=== PATIENT | male | born 1950 ===

== ENCOUNTER 2019-03-10 23:26 | Inpatient (IN) | payer SELFPAY ==
[2019-03-10 23:59] LABS: Basophils # (Auto) 0.1 K/mm3 (0.0-0.1); Eosinophils # (Auto) 0.7 K/mm3 (0.0-0.4); Eosinophils % (Auto) 7.4 % (0.0-4.3); Hematocrit 28.6 % (35.5-45.6); Hemoglobin 9.3 gm/dl (11.8-15.2); Lymphocytes # (Auto) 2.6 K/mm3 (1.2-5.4); Lymphocytes % (Auto) 27.1 % (13.4-35.0); Mean Corpuscular HGB Conc 32 % (32-34); Mean Corpuscular Volume 88 fl (84-94); Monocytes # (Auto) 0.9 K/mm3 (0.0-0.8); Monocytes % (Auto) 9.1 % (0.0-7.3); Platelet Count 358 K/mm3 (140-440); Red Blood Count 3.25 M/mm3 (3.65-5.03); Red Cell Distribution Width 16.8 % (13.2-15.2)
--- NOTE | 2019-03-11 00:06 | Emergency Department Report ---
HPI - General Chief Complaint: Dyspnea/Respdistress Time Seen by Provider: 03/10/19 23:33 - HPI HPI: 68-year-old male presents to the emergency department by EMS from home with complaints of shortness of breath and chest pain. The patient has a h istory of end-stage renal disease on hemodialysis, hypertension. He has missed the last 2 dialysis sessions. Apparently he usually gets dialysis done through [facility] and does not have any assigned dialysis clinic or dressage instructor. The patient presents diaphoretic, tripoding, with respiratory distress. He does not speak any Persian but is also having difficulty giving any information seco ndary to his current acute medical condition. EMS says that he had a pulse ox in the low 80s on room air. He was given a breathing treatment and pulse ox went up to about 90%. He was also given some Solu-Medrol in route. ED Past Medical Hx - Past Medical History Previous Medical History?: Yes Hx Hypertension: Yes Additional medical history: dialysis - Social History Smoking Status: Never Smoker ED Review of Systems ROS: Stated complaint: MARIE Other details as noted in HPI Comment: Unobtainable due to pts medical conditions Respiratory: shortness of breath Cardiovascular: chest pain Physical Exam - Physical Exam Vital Signs: Vital Signs 03/10/19 23:35 Temperature 99 F Pulse Rate 124 H Respiratory 36 H Rate Blood Pressure 215/114 O2 Sat by Pulse 80 L Oximetry Physical Exam: GENERAL: Patient is diaphoretic and in respiratory distress. HENT: Normocephalic. Atraumatic. Patient has moist mucous membranes. EYES: Extraocular motions are intact. Pupils equal reactive to light bilaterally. NECK: Supple. Trachea is midline. CHEST/LUNGS: Coarse breath sounds throughout the chest. There is tachypnea and accessory muscle use and conversational dyspnea. There is respiratory distress noted. There is a right-sided dialysis chest port. HEART/CARDIOVASCULAR: Regular. There is mild tachycardia. There is no murmur. ABDOMEN: Abdomen is soft, nontender. Patient has normal bowel sounds. There is no abdominal distention. SKIN: Patient is severely diaphoretic. NEURO: The patient is awake, alert, and cooperative. The patient has no focal neurologic deficits. Normal speech. MUSCULOSKELETAL: There is no tenderness or deformity. There is no evidence of acute injury. ED Course Vital Signs 03/10/19 23:35 Temperature 99 F Pulse Rate 124 H Respiratory 36 H Rate Blood Pressure 215/114 O2 Sat by Pulse 80 L Oximetry - Consultations Consultation #1: Earlier in the evening I spoke with Dr. Hernández regarding this patient and his need for dialysis. Since the patient has improved with BiPAP and there is no significant hyperkalemia, the patient will get dialysis person in the morning. A consult has been placed. 03/11/19 02:10 ED Medical Decision Making - Lab Data Result diagrams: 03/10/19 23:39 03/10/19 23:39 - EKG Data -: EKG Interpreted by Me EKG shows normal: sinus rhythm, axis, intervals, QRS complexes (LVH), ST-T waves Rate: tachycardia (117 bpm) - EKG Data When compared to previous EKG there are: previous EKG unavailable Interpretation: other (Sinus tach. LVH) - Radiology Data Radiology results: image reviewed interpreted by me: Chest x-ray shows pulmonary vascular congestion and basilar pleural effusions. - Medical Decision Making Patient presented in respiratory distress with tripoding, tachypnea, accession muscle use, conversational dyspnea. He has oxygen desaturation without supplemental oxygen. Patient was placed on the BiPAP machine and his pulse ox went up to about 99% and he had some improvement in his respiratory status. Chest x-ray shows some pulmonary vascular congestion and basilar pleural effusions. X-ray read by radiology also showing some pneumonitis. Labs show the renal insufficiency/failure consistent with his missing 2 dialysis sessions but there is no hyperkalemia. Patient also had complaint of some chest discomfort. EKG does not show any signs of ST elevation [place]. He does have a slightly elevated first troponin but the patient is dialysis dependent. Nephrology has been contacted and consult. Patient still has some hypertensive issues and will receive some more antihypertensive medication. He will receive dialysis first thing in the morning. The patient has been accepted for adm ission by the hospitalist, Dr. Trujillo. - Differential Diagnosis Hyperkalemia, CHF, Pneumonia, [place] Critical Care Time: Yes Critical care time in (mins) excluding proc time.: 35 Critical care attestation.: If time is entered above; I have spent that time in minutes in the direct care of this critically ill patient, excluding procedure time. Critical care time was spent on this patient during his initial evaluation, multiple re- evaluations, ordering and interpretation of labs and imaging, ordering of antihypertensive medication for his hypertensive urgency, discussion with the dressage instructor and hospitalist services. Critical Care Time: 35 minutes ED Disposition Clinical Impression: Hypertensive urgency, Respiratory distress, End-stage renal disease needing dialysis Disposition: 09 OP ADMIT IP TO THIS HOSP Is pt being admited?: Yes Condition: Serious Referrals: PRIMARY CARE, [Primary Care Provider] - 3-5 Days Time of Disposition: 02:11
--- NOTE | 2019-03-11 00:11 | XRay Report ---
CHEST 1 VIEW portable upright 2338 INDICATION / CLINICAL INFORMATION: SOB. COMPARISON: None available. FINDINGS: SUPPORT DEVICES: Large bore right central line has its tip in the area of the distal superior vena ca va. HEART / MEDIASTINUM: Mild cardiomegaly LUNGS / PLEURA: Mild congestion is seen. Focal infiltrate is noted in the right base consistent with pneumonitis. Small right pleural effusion is seen. No pneumothorax. ADDITIONAL FINDINGS: No significant additional findings. IMPRESSION: Right basilar pneumonitis Signer Name: Pedro Pablo Salazar MD Signed: 03/11/2019 12:07 AM Workstation Name: [employer]
[2019-03-11] MEDS ORDERED: APRESOLINE IV ONE ×2 (00:16→02:11)
[2019-03-11] MEDS ORDERED: LASIX IV ONE (00:16)
[2019-03-11] MEDS ORDERED: PROVENTIL IH ONE (00:17)
[2019-03-11 00:22] LABS: Albumin 4.1 g/dL (3.9-5); Calcium 8.3 mg/dL (8.4-10.2)
[2019-03-11 03:09] LABS: Chol/HDL Ratio 2.83 %
[2019-03-11] MEDS ORDERED: TYLENOL PO PRN (03:17)
[2019-03-11] MEDS ORDERED: ZOFRAN IV PRN (03:18)
[2019-03-11] MEDS ORDERED: PROVENTIL IH PRN (03:19)
[2019-03-11] MEDS ORDERED: APRESOLINE IV PRN (04:51)
[2019-03-11] MEDS ORDERED: D50W (25GM) Syringe IV PRN (04:53)
[2019-03-11] MEDS ORDERED: NACL 0.9% 100 ML IV PRN (05:13)
--- NOTE | 2019-03-11 05:53 | History and Physical Report ---
CHIEF COMPLAINT: Shortness of breath. HISTORY OF PRESENTING ILLNESS: The patient is a 68-year-old male who has history of end-stage renal disease, on dialysis and missed the last 2 dialysis sessions and then developed shortness of breath with some pleuritic chest pain. The patient denied history of fever or chills and does not speak fluent Bengali and was unable to give meaningful explanation of what is going on with him. There is no history of nausea or vomiting. EMS was called and they found the patient to be in respiratory distress with low oxygen saturation running in the 80s. The patient was given some breathing treatment that brought his O2 sat to about 90 and he was also given Solu-Medrol en route and brought to the Emergency Room. There was history of diaphoresis. PAST MEDICAL HISTORY: Pertinent for end-stage renal disease that is done at [facility]. Also, the patient has past medical history of hypertension. PAST SURGICAL HISTORY: Not clearly defined. FAMILY HISTORY: Noncontributory. SOCIAL HISTORY: The patient is not known to smoke cigarettes or use illicit drugs or drink alcohol. MEDICATIONS: The patient's home medications are not known at this time. ALLERGIES: There are no known drug allergies. REVIEW OF SYSTEMS: CONSTITUTIONAL: There is no fever, no chills. The diaphoresis is present. HEENT: There is no headache or sore throat. CARDIOVASCULAR SYSTEM: Pleuritic chest pain noted. No orthopnea. RESPIRATORY SYSTEM: Shortness of breath is present. No cough. GASTROINTESTINAL SYSTEM: There is no nausea, no vomiting, no abdominal pain, diarrhea or constipation. NEUROLOGICAL SYSTEM: There is no numbness, no dizziness, no altered mental status. MUSCULOSKELETAL SYSTEM: There is no joint pain or swelling. DERMATOLOGICAL SYSTEM: There is no skin rash or itching. GENITOURINARY SYSTEM: There is no dysuria, hematuria, or flank pain. Rest of system review is normal. PHYSICAL EXAMINATION: GENERAL: At the time of exam, the patient was found to be alert, oriented x 3, on BiPAP with BiPAP mask and in mild to moderate distress due to respiratory distress. VITAL SIGNS: At the initial time of presentation showed temperature of 99 degrees Fahrenheit, pulse of 124, respirations 36, blood pressure of 215/114, O2 sat of 80% on room air. HEENT: Showed pupils to be equal, round, reactive to light and accommodating. Extraocular muscles are intact. The patient is wearing a BiPAP mask. NECK: Supple with no JVD or carotid bruit. CARDIOVASCULAR SYSTEM: Showed normal first and second heart sounds with rapid rate with no gallops or murmur. RESPIRATORY SYSTEM: Showed reduced air entry on both sides of the lungs with the patient wearing the BiPAP mask. GASTROINTESTINAL SYSTEM: Showed abdomen to be full, soft, nontender with no organomegaly or rigidity. NEUROLOGIC: Shows no focal deficit. MUSCULOSKELETAL SYSTEM: Showed no joint swelling or tenderness. DERMATOLOGICAL SYSTEM: Showed no skin rash. GENITOURINARY SYSTEM: Showing no costovertebral angle tenderness. PERTINENT LABORATORY AND IMAGING STUDIES: The patient had CBC done with normal white count, low hemoglobin of 9.3 and low hematocrit of 28.6 with CBC differential showing elevated monocyte count of 9.1 and elevated eosinophil count of 7.4%. The patient's coagulation studies were unremarkable. ABG showed high pH of 7.46 with elevated pO2 of 171 on FiO2 of 60. The patient's chemistry showed high BUN of 88 with high creatinine of 15.9, consistent with end-stage renal disease, on dialysis. The patient's troponin level was high with a value of 0.051. The patient's brain natriuretic peptide level is high with a value of 35,000. Lipid level was unremarkable. The patient had chest x-ray done that shows right basilar pneumonitis. DIAGNOSES: 1. End-stage renal disease, needing dialysis. 2. Hypertensive crisis. 3. Right basilar pneumonitis. PLAN OF CARE: 1. The patient will be admitted to [facility] and will be on telemetry. 2. The patient will continue BiPAP treatment started in the Emergency Room until the patient's oxygenation normalizes. 3. The patient will continue Nephrology consult with Dr. Hernández for management of end-stage renal disease and also hypertension. 4. The patient will be on albuterol nebulizer 2.5 mg every 6 hours as needed for shortness of breath. 5. The patient will be on IV ceftriaxone 1 g daily and Zithromax 500 mg IV daily for treatment of pneumonitis. 6. The patient will be on IV hydralazine 20 mg every 4 hours as needed for blood pressure of 160/90 or more. 7. The patient will be on Tylenol 650 mg by mouth every 4 hours for fever and headache and IV Zofran 4 mg every 8 hours for nausea and vomiting. 8. The patient's home medications will be started when they are known. ADDENDUM: The patient will be on Accu-Chek before meals and at bedtime, followed by low-dose sliding scale using regular insulin coverage, even though the patient was not documented as having a past history of diabetes mellitus. JOB# [id number] OCN/NTS
[2019-03-11] MEDS: HEPARIN SUB-Q SCH ×3 (07:01→21:04)
[2019-03-11 07:10] LABS: Creatine Kinase MB 10.8 ng/mL (0.0-4.0)
[2019-03-11] MEDS: HumuLIN R SUB-Q SCH ×4 (07:40→22:36)
[2019-03-11] MEDS ORDERED: HumuLIN R ONE (07:41)
--- NOTE | 2019-03-11 09:36 | Consultation ---
History of Present Illness - History of Present Illness Source of information: History of presenting illness Patient is 68-year-old male who came into the emergency room with complaints of chest pain and shortness of breath, after he missed 2 dialysis treatment. Patient is currently being followed by [place] [facility]. He was also noted to be markedly dyspneic and short of breath I saw the patient along with Mir, who is Guamanian speaking nurse on dialysis Also supervised. The patient on hemodialysis Patient denies having any fever or chills Pulse ox was 80% on room air The events of this hospitalization were reviewed Past medical history significant for End-stage renal disease Hypertension Secondary hyperparathyroidism Anemia and end-stage renal disease Current allergies: Reviewed Home medication. Present medication: Reviewed Social history/family history: Reviewed Review of system: Shortness of breath, chest pain. Patient missed 2 dialysis treatments Currently being dialyzed at [place] Very poorly educated about dialysis and diet All other review of systems negative Physical examination Vitals: Reviewed HEENT: Oral mucosa mildly dry. No pharyngeal erythema, no icterus Neck: Supple, no JVD, thyromegaly, nodule or mass Chest: Clear to auscultation anteriorly. Few basilar crackles, diminished breath sounds at lung base Heart: Regular rate and rhythm, S1, S2 heard, no S3, S4 Abdomen: Soft, nontender, bowel sounds present. No suprapubic mass. No CVA tenderness. No renal bruit Extremities: No petechial rash, dry skin, 1+ edema, no peripheral cyanosis Neurological: Alert, awake, follows commands. No asterixis Dermatology; no petechial skin rash, dry skin, poor skin hygiene Back: Nontender thoracolumbar spine Psychiatric: No agitation, aggression noted My assessment and plan are as follows End-stage renal disease: Patient will continue with hemodialysis treatment, 3 times a week on Monday, Monday and Monday, schedule. Monitor dialysis related labs. Dialysis access: Working well. No immediate issues Seen and supervised on hemodialysis, with Guamanian speaking nurse Anemia and end-stage renal disease: To monitor and follow. Erythropoietin as required Secondary hyperparathyroidism and bone mineral disorder. Check phosphorus and PTH level periodically Hypertension and volume: Continue to monitor. Goal systolic blood pressure less than 150 for now, ultrafiltration only as tolerated with hemodialysis. Advised to maintain fluid restriction 1200 cc per day Patient is to be on high protein diet due to dialysis status, will benefit from nutritional evaluation and follow-up Multiple other comorbidities; being followed by the primary team Renal care plan was discussed with patient. Labs were explained to the patient and simple Yemeni. Patient does appear to have good understanding of several renal-related issues that were discussed today. Renal prognosis remains guarded at this time We'll continue to follow and make recommendations from renal standpoint Patient was advised to make an appointment for follow-up in the office upon discharge. Medications and Allergies Allergies Allergy/AdvReac Type Severity Reaction Status Date / Time No Known Allergies Allergy Unverified 03/10/19 23:39 Home Medications Medication Instructions Recorded Confirmed Last Taken Type Unobtainable 03/11/19 03/11/19 Unknown History Active Meds: Active Medications Acetaminophen (Tylenol) 650 mg PO Q4H PRN PRN Reason: Fever >101 Albuterol (Proventil) 2.5 mg IH Q6HRT PRN PRN Reason: Shortness Of Breath Dextrose (D50w (25gm) Syringe) 50 ml IV PRN PRN PRN Reason: Hypoglycemia Heparin Sodium (Porcine) (Heparin) 5,000 unit SUB-Q Q12HR [facility] Last Admin: 03/11/19 07:01 Dose: Not Given Documented by: Hydralazine HCl (Apresoline) 20 mg IV Q4H PRN PRN Reason: Blood Pressure Ceftriaxone Sodium (Rocephin/Ns 1 Gm/50 Ml) 1 gm in 50 mls @ 100 mls/hr IV Q24HR [facility]; Protocol Azithromycin 500 mg/ Sodium (Chloride) 250 mls @ 250 mls/hr IV Q24HR [facility]; Protocol Sodium Chloride (Nacl 0.9%) 100 mls @ 999 mls/hr IV FITO PRN PRN Reason: Hypotension Insulin Human Regular (Humulin R) 0 units SUB-Q AC [facility]; Protocol Last Admin: 03/11/19 07:40 Dose: 1 units Documented by: Insulin Human Regular (Humulin R) 0 units SUB-Q QHS [facility]; Protocol Ondansetron HCl (Zofran) 4 mg IV Q8H PRN PRN Reason: Nausea And Vomiting Exam - Vital Signs Vital signs: Vital Signs Temp Pulse Resp BP Pulse Ox 99 F 124 H 36 H 215/114 80 L 03/10/19 23:35 03/10/19 23:35 03/10/19 23:35 03/10/19 23:35 03/10/19 23:35 Results - Lab Results 03/12/19 04:51 03/12/19 04:51 Most recent lab results Calcium 8.3 mg/dL (8.4-10.2) L 03/10/19 23:39
[2019-03-11] MEDS: ZITHROMAX 500 MG in NACL 0.9% 250ML 250 ML IV SCH (13:10)
[2019-03-11] MEDS: ROCEPHIN/NS 1 GM/50 ML 1 GM/50 ML BAG IV SCH (13:11)
[2019-03-11 13:36] LABS: Hepatitis B Surface Antigen Non-Reactive (Negative); Hepatitis C Virus Antibody Reactive (NonReactive)
--- NOTE | 2019-03-11 14:31 | Consultation ---
<KATIE RODRÍGUEZ - Last Filed: 03/11/19 14:26> History of Present Illness Consult date: 03/11/19 Consult reason: congestive heart failure History of present illness: This is a 68-year old male whom is Burundian speaking and is usually followed at [place]. Patient has a history of chronic hypertension, end stage renal disease and is on dialysis. He was brought to this hospital with shortness of breath, admitted for further evaluation. Chest x-ray reports cardiomegaly with mild interstitial edema and right basilar pneumonitis. There were no reports of chest pain or palpitations and there is no lower extremity edema. Patient denies prior cardiac history. It's reported he had a normal echocardiogram and thallium stress test at [facility] 6 months ago. Records are unavailable for cardiac review. An EKG is sinus tachycardia with LVH. Medications and Allergies Allergies Allergy/AdvReac Type Severity Reaction Status Date / Time No Known Allergies Allergy Unverified 03/10/19 23:39 Home Medications Medication Instructions Recorded Confirmed Last Taken Type Unobtainable 03/11/19 03/11/19 Unknown History Active Meds: Active Medications Acetaminophen (Tylenol) 650 mg PO Q4H PRN PRN Reason: Fever >101 Albuterol (Proventil) 2.5 mg IH Q6HRT PRN PRN Reason: Shortness Of Breath Dextrose (D50w (25gm) Syringe) 50 ml IV PRN PRN PRN Reason: Hypoglycemia Heparin Sodium (Porcine) (Heparin) 5,000 unit SUB-Q Q12HR [facility] Last Admin: 03/11/19 11:00 Dose: 5,000 unit Documented by: Hydralazine HCl (Apresoline) 20 mg IV Q4H PRN PRN Reason: Blood Pressure Ceftriaxone Sodium (Rocephin/Ns 1 Gm/50 Ml) 1 gm in 50 mls @ 100 mls/hr IV Q24HR [facility]; Protocol Last Admin: 03/11/19 13:11 Dose: 100 mls/hr Documented by: Azithromycin 500 mg/ Sodium (Chloride) 250 mls @ 250 mls/hr IV Q24HR [facility]; Protocol Last Admin: 03/11/19 13:10 Dose: 250 mls/hr Documented by: Sodium Chloride (Nacl 0.9%) 100 mls @ 999 mls/hr IV FITO PRN PRN Reason: Hypotension Insulin Human Regular (Humulin R) 0 units SUB-Q AC [facility]; Protocol Last Admin: 03/11/19 13:14 Dose: 2 units Documented by: Insulin Human Regular (Humulin R) 0 units SUB-Q QHS [facility]; Protocol Ondansetron HCl (Zofran) 4 mg IV Q8H PRN PRN Reason: Nausea And Vomiting Physical Examination Vital Signs Temp Pulse Resp BP Pulse Ox 99 F 124 H 36 H 215/114 80 L 03/10/19 23:35 03/10/19 23:35 03/10/19 23:35 03/10/19 23:35 03/10/19 23:35 General appearance: no acute distress HEENT: Positive: PERRL Cardiac: Positive: Tachycardia Lungs: Positive: Decreased Breath Sounds Neuro: Positive: Grossly Intact Extremities: Absent: edema Results 03/10/19 23:39 03/10/19 23:39 Cardiac Enzymes 03/10/19 03/11/19 Range/Units 23:39 05:50 AST 20 (5-40) units/L CK-MB (CK-2) 10.8 H (0.0-4.0) ng/mL Coagulation 03/10/19 Range/Units 23:39 APTT 28.0 (24.2-36.6) Sec. Lipids 03/10/19 Range/Units 23:39 Triglycerides 96 (2-149) mg/dL Cholesterol 176 (50-199) mg/dL HDL Cholesterol 62 H (40-59) mg/dL Cholesterol/HDL Ratio 2.83 % CBC 03/10/19 Range/Units 23:39 WBC 9.7 (4.5-11.0) K/mm3 RBC 3.25 L (3.65-5.03) M/mm3 Hgb 9.3 L (11.8-15.2) gm/dl Hct 28.6 L (35.5-45.6) % Plt Count 358 (140-440) K/mm3 Lymph # 2.6 (1.2-5.4) K/mm3 Esmeralda # 0.9 H (0.0-0.8) K/mm3 Eos # 0.7 H (0.0-0.4) K/mm3 Baso # 0.1 (0.0-0.1) K/mm3 Comprehensive Metabolic Panel 03/10/19 Range/Units 23:39 Sodium 138 (137-145) mmol/L Potassium 4.3 (3.6-5.0) mmol/L Chloride 93.8 L (98-107) mmol/L Carbon Dioxide 16 L (22-30) mmol/L BUN 88 H (9-20) mg/dL Creatinine 15.9 H (0.8-1.5) mg/dL Glucose 258 H (75-100) mg/dL Calcium 8.3 L (8.4-10.2) mg/dL AST 20 (5-40) units/L ALT 15 (7-56) units/L Alkaline Phosphatase 75 (35-129) units/L Total Protein 7.6 (6.3-8.2) g/dL Albumin 4.1 (3.9-5) g/dL Assessment and Plan Volume overload ESRD on HD Hypertension <RISHABH GAMEZ - Last Filed: 03/12/19 10:03> Medications and Allergies Active Meds: Active Medications Acetaminophen (Tylenol) 650 mg PO Q4H PRN PRN Reason: Fever >101 Albuterol (Proventil) 2.5 mg IH Q6HRT PRN PRN Reason: Shortness Of Breath Carvedilol (Coreg) 3.125 mg PO BID [facility] Last Admin: 03/12/19 10:01 Dose: 3.125 mg Documented by: Dextrose (D50w (25gm) Syringe) 50 ml IV PRN PRN PRN Reason: Hypoglycemia Hydralazine HCl (Apresoline) 20 mg IV Q4H PRN PRN Reason: Blood Pressure Ceftriaxone Sodium (Rocephin/Ns 1 Gm/50 Ml) 1 gm in 50 mls @ 100 mls/hr IV Q24HR [facility]; Protocol Last Admin: 03/12/19 09:48 Dose: 100 mls/hr Documented by: Azithromycin 500 mg/ Sodium (Chloride) 250 mls @ 250 mls/hr IV Q24HR [facility]; Protocol Last Admin: 03/12/19 09:48 Dose: 250 mls/hr Documented by: Sodium Chloride (Nacl 0.9%) 100 mls @ 999 mls/hr IV FITO PRN PRN Reason: Hypotension Insulin Human Regular (Humulin R) 0 units SUB-Q AC [facility]; Protocol Last Admin: 03/12/19 07:30 Dose: Not Given Documented by: Insulin Human Regular (Humulin R) 0 units SUB-Q QHS [facility]; Protocol Last Admin: 03/11/19 22:36 Dose: Not Given Documented by: Losartan Potassium (Cozaar) 50 mg PO QDAY [facility] Last Admin: 03/12/19 10:01 Dose: 50 mg Documented by: Ondansetron HCl (Zofran) 4 mg IV Q8H PRN PRN Reason: Nausea And Vomiting Physical Examination Vital Signs Temp Pulse Resp BP Pulse Ox 99 F 124 H 36 H 215/114 80 L 03/10/19 23:35 03/10/19 23:35 03/10/19 23:35 03/10/19 23:35 03/10/19 23:35 Results 03/12/19 04:51 03/12/19 04:51 Cardiac Enzymes 03/11/19 Range/Units 13:47 CK-MB (CK-2) 8.2 H (0.0-4.0) ng/mL CBC 03/12/19 Range/Units 04:51 WBC 9.7 (4.5-11.0) K/mm3 RBC 2.63 L (3.65-5.03) M/mm3 Hgb 7.5 L (11.8-15.2) gm/dl Hct 22.5 L D (35.5-45.6) % Plt Count 277 (140-440) K/mm3 Comprehensive Metabolic Panel 03/12/19 Range/Units 04:51 Sodium 138 (137-145) mmol/L Potassium 5.0 (3.6-5.0) mmol/L Chloride 96.9 L (98-107) mmol/L Carbon Dioxide 23 D (22-30) mmol/L BUN 61 H (9-20) mg/dL Creatinine 10.6 H (0.8-1.5) mg/dL Glucose 102 H (75-100) mg/dL Calcium 8.2 L (8.4-10.2) mg/dL Assessment and Plan Patient has end-stage renal disease, but appears to be on his suboptimal dialysis regimen of twice a week. He presents with uncontrolled hypertension and fluid overload. Echocardiogram is pending for left ventricular function assessment. Recommend optimalization of dialysis regimen for fluid and electrolyte management. Optimal blood pressure control. Further cardiac evaluation and management will depend on clinical course.
[2019-03-11 15:05] LABS: Creatine Kinase MB 8.2 ng/mL (0.0-4.0)
--- NOTE | 2019-03-11 15:11 | Event Note ---
Date: 03/11/19 Patient seen and examined, he missed his dose of medication for BP and by the time he got a refill he was already in distress, he is otherwise complaint with dialysis and normally follows at [place]. Continue current management, if no further management by cardiology will downgrade to FARAZ unit.
--- NOTE | 2019-03-11 17:36 | Consultation ---
History of Present Illness Consult date: 03/11/19 Reason for consult: dyspnea History of present illness: PULMONARY AND CRITICAL CARE CONSULTATION 68-year-old male presents to the emergency department by EMS from home with complaints of shortness of breath and chest pain. The patient has a history of end-stage renal disease on hemodialysis, hypertension. He has missed the last 2 dialysis sessions. Apparently he usually gets dialysis done through [facility] and does not have any assigned dialysis clinic or trim die maker. The patient presents diaphoretic, tripoding, with respiratory distress. He does not speak any [place] but is also having difficulty giving any information secondary to his current acute medical condition. EMS says that he had a pulse ox in the low 80s on room air. He was given a breathing treatment and pulse ox went up to about 90%. He was also given some Solu-Medrol in route. Patient alert and awake. Patient states he began having shortness of breath while lying down worsening on Monday night. He denies cough, hemoptysis. He denies history of smoking, endorses EtOH in the past. 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 Patient says he is not and has no children. Patient resting on 2L O2 via NC. O2 saturation 98% on 2L NC. Patient in mild pulmonary distress. Patient afebrile, no leukocytosis. Past History Past Medical History: diabetes, dialysis, hypertension Social history: single Medications and Allergies Allergies Allergy/AdvReac Type Severity Reaction Status Date / Time No Known Allergies Allergy Unverified 03/10/19 23:39 Home Medications Medication Instructions Recorded Confirmed Last Taken Type Unobtainable 03/11/19 03/11/19 Unknown History Active Meds: Active Medications Acetaminophen (Tylenol) 650 mg PO Q4H PRN PRN Reason: Fever >101 Albuterol (Proventil) 2.5 mg IH Q6HRT PRN PRN Reason: Shortness Of Breath Dextrose (D50w (25gm) Syringe) 50 ml IV PRN PRN PRN Reason: Hypoglycemia Heparin Sodium (Porcine) (Heparin) 5,000 unit SUB-Q Q12HR LULI Last Admin: 03/11/19 11:00 Dose: 5,000 unit Documented by: Hydralazine HCl (Apresoline) 20 mg IV Q4H PRN PRN Reason: Blood Pressure Ceftriaxone Sodium (Rocephin/Ns 1 Gm/50 Ml) 1 gm in 50 mls @ 100 mls/hr IV Q24HR LULI; Protocol Last Admin: 03/11/19 13:11 Dose: 100 mls/hr Documented by: Azithromycin 500 mg/ Sodium (Chloride) 250 mls @ 250 mls/hr IV Q24HR LULI; Protocol Last Admin: 03/11/19 13:10 Dose: 250 mls/hr Documented by: Sodium Chloride (Nacl 0.9%) 100 mls @ 999 mls/hr IV FITO PRN PRN Reason: Hypotension Insulin Human Regular (Humulin R) 0 units SUB-Q AC LULI; Protocol Last Admin: 03/11/19 16:51 Dose: 2 units Documented by: Insulin Human Regular (Humulin R) 0 units SUB-Q QHS LULI; Protocol Ondansetron HCl (Zofran) 4 mg IV Q8H PRN PRN Reason: Nausea And Vomiting Review of Systems All systems: negative (shortness of breath) Physical Examination Vital signs: Vital Signs Temp Pulse Resp BP Pulse Ox 99 F 124 H 36 H 215/114 80 L 03/10/19 23:35 03/10/19 23:35 03/10/19 23:35 03/10/19 23:35 03/10/19 23:35 General appearance: no acute distress, alert Eyes: non-icteric ENT: oropharynx moist Neck: supple, no JVD Ascultation: Bilateral: rales Cardiovascular: regular rate and rhythm Gastrointestinal: normoactive bowel sounds, soft, non-tender Integumentary: normal Extremities: no cyanosis, no edema Musculoskeletal: no deformities Gait: other (Patient resting in bed at this time.) normal mental status, non-focal exam, pupils equal and round, CN II-XII normal mood appropriate Results - Laboratory Findings CBC and BMP: 03/12/19 04:51 03/12/19 04:51 ABG POC ABG pH 7.462 (7.35-7.45) H 03/11/19 00:26 POC ABG pO2 171 (80-105) H 03/11/19 00:26 POC ABG HCO3 13.8 (22-26 mml/L) 03/11/19 00:26 POC ABG Total CO2 14 (23-27mmol/L) 03/11/19 00:26 POC ABG O2 Sat 100 03/11/19 00:26 Abnormal lab findings: Abnormal Labs 03/10/19 03/10/19 03/11/19 23:39 23:39 00:26 RBC 3.25 L Hgb 9.3 L Hct 28.6 L RDW 16.8 H [place] % (Auto) 9.1 H Eos % (Auto) 7.4 H [place] # 0.9 H Eos # 0.7 H POC ABG pH 7.462 H POC ABG pO2 171 H Chloride 93.8 L Carbon Dioxide 16 L BUN 88 H Creatinine 15.9 H Glucose 258 H POC Glucose Calcium 8.3 L Total Creatine Kinase CK-MB (CK-2) Troponin T 0.051 H NT-Pro-B Natriuret Pep 05213 H HDL Cholesterol 62 H Hepatitis C Antibody 03/11/19 03/11/19 03/11/19 05:50 07:43 09:59 RBC Hgb Hct RDW [place] % (Auto) Eos % (Auto) [place] # Eos # POC ABG pH POC ABG pO2 Chloride Carbon Dioxide BUN Creatinine Glucose POC Glucose 188 H Calcium Total Creatine Kinase 370 H CK-MB (CK-2) 10.8 H Troponin T 0.053 H NT-Pro-B Natriuret Pep HDL Cholesterol Hepatitis C Antibody Reactive A 03/11/19 03/11/19 03/11/19 12:04 13:47 16:49 RBC Hgb Hct RDW [place] % (Auto) Eos % (Auto) [place] # Eos # POC ABG pH POC ABG pO2 Chloride Carbon Dioxide BUN Creatinine Glucose POC Glucose 227 H 216 H Calcium Total Creatine Kinase 275 H CK-MB (CK-2) 8.2 H Troponin T 0.047 H NT-Pro-B Natriuret Pep HDL Cholesterol Hepatitis C Antibody - Diagnostic Findings Chest x-ray: report reviewed, image reviewed Additional studies: CHEST 1 VIEW portable upright 2338 INDICATION / CLINICAL INFORMATION: SOB. COMPARISON: None available. FINDINGS: SUPPORT DEVICES: Large bore right central line has its tip in the area of the distal superior vena cava. HEART / MEDIASTINUM: Mild cardiomegaly LUNGS / PLEURA: Mild congestion is seen. Focal infiltrate is noted in the right base consistent with pneumonitis. Small right pleural effusion is seen. No pneumothorax. ADDITIONAL FINDINGS: No significant additional findings. IMPRESSION: Right basilar pneumonitis Assessment and Plan 68-year-old male presents to the emergency department by EMS from home with complaints of shortness of breath and chest pain. The patient has a history of end-stage renal disease on hemodialysis, hypertension. He has missed the last 2 dialysis sessions. Apparently he usually gets dialysis done through [facility] and does not have any assigned dialysis clinic or trim die maker. The patient presents diaphoretic, tripoding, with respiratory distress. He does not speak any [place] but is also having difficulty giving any information secondary to his current acute medical condition. EMS says that he had a pulse ox in the low 80s on room air. He was given a breathing treatment and pulse ox went up to about 90%. He was also given some Solu-Medrol in route. Patient alert and awake. Patient states he began having shortness of breath while lying down worsening on Monday night. He denies cough, hemoptysis. He denies history of smoking, endorses EtOH in the past. 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 Patient says he is not and has no children. Patient resting on 2L O2 via NC. O2 saturation 98% on 2L NC. Patient in mild pulmonary distress. Patie nt afebrile, no leukocytosis. - Patient Problems (1) Respiratory distress Current Visit: Yes Status: Acute Plan to address problem: Albuterol/Atrovent q 6 hrs for shortness of breath. On Ceftriaxone and Azithromycin. O2 as needed to maintain O2 sat >92%. Dialysis as per nephrology. (2) Pneumonia involving right lung Current Visit: Yes Status: Acute Plan to address problem: Albuterol/Atrovent q 6 hrs for shortness of breath. On Ceftriaxone and Azithromycin. O2 as needed to maintain O2 sat >92%. (3) End-stage renal disease needing dialysis Current Visit: Yes Status: Acute Plan to address problem: Management as per nephrology. (4) Hypertensive urgency Current Visit: Yes Status: Acute Plan to address problem: BP remains elevated. Management as per primary care.
[2019-03-12 05:03] LABS: Hematocrit 22.5 % (35.5-45.6); Hemoglobin 7.5 gm/dl (11.8-15.2); Mean Corpuscular HGB Conc 33 % (32-34); Mean Corpuscular Volume 86 fl (84-94); Platelet Count 277 K/mm3 (140-440); Red Blood Count 2.63 M/mm3 (3.65-5.03); Red Cell Distribution Width 16.9 % (13.2-15.2)
[2019-03-12 05:21] LABS: Calcium 8.2 mg/dL (8.4-10.2)
[2019-03-12] MEDS: HumuLIN R SUB-Q SCH ×4 (07:30→22:04)
--- NOTE | 2019-03-12 08:44 | Progress Note ---
Subjective Interval history: Patient was seen today for follow-up on multiple renal related issues Events of this hospitalization were noted Has had hemodialysis yesterday Blood pressure is somewhat better Interdisciplinary notes were also reviewed Vitals intake output medications were reviewed Past medical history: Reviewed Family, social history: Reviewed Allergies: Reviewed Physical examination General: No acute distress Vitals: Reviewed HEENT: Oral mucosa moist no icterus Neck: Supple no thyromegaly nodular mass or JVD Chest: Clear to auscultation anteriorly Heart: Regular rate and rhythm S1-S2 heard no S3-S4 Abdomen: Soft nontender no suprapubic masses no organomegaly Extremity: Dry skin less than 1+ edema Psych: No evidence of any agitation and aggression noted Derm: No petechial rash Assessment and plan: End-stage renal disease: Patient will continue with hemodialysis treatment on MWF scheduled as tolerated, monitor dialysis related labs Accelerated hypertension requires better control and follow-up, we'll start the patient on losartan 50 mg once a day carvedilol 3.125 mg twice a day Anemia and end-stage renal disease: To monitor and follow, erythropoietin as required goal hemoglobin dialysis patients usually occurring 10 and 12, we will follow Secondary hyperparathyroidism: Monitor phosphorus and PTH periodically and adjust binders as needed Diet and nutrition: Fluid restriction 1200 mL per day, high-protein diet may benefit from nutrition consultation , patient is protein intake should be 1.5 g per KG body weight Hypertension and volume continue to monitor, educated about fluid restriction sodium restriction Patient does exhibit good understanding of the renal related issues All renal related issues were discussed with the patient, patient does exhibit good understanding, lab results were also discussed with patient in simple French Prognosis: Guarded, due to dialysis status We'll continue to follow and make recommendation from renal standpoint Objective - Vital Signs Vital signs: Vital Signs - 12hr 03/11/19 03/11/19 03/12/19 20:47 20:48 01:42 Temperature 98.7 F Pulse Rate 101 H 91 H Pulse Rate [ 84 From Monitor] Respiratory 18 14 Rate Blood Pressure 154/84 O2 Sat by Pulse 98 99 Oximetry 03/12/19 07:17 Temperature 98.6 F Pulse Rate 91 H Pulse Rate [ From Monitor] Respiratory 20 Rate Blood Pressure 162/97 O2 Sat by Pulse 98 Oximetry - Lab 03/12/19 04:51 03/12/19 04:51 Most recent lab results Calcium 8.2 mg/dL (8.4-10.2) L 03/12/19 04:51 Medications & Allergies - Medications Allergies/Adverse Reactions: Allergies No Known Allergies Allergy (Unverified 03/10/19 23:39) Home Medications: Home Medications Medication Instructions Recorded Confirmed Last Taken Type Unobtainable 03/11/19 03/11/19 Unknown History Active Medications: Generic Name Dose Route Start Last Admin Trade Name Freq PRN Reason Stop Dose Admin Acetaminophen 650 mg 03/11/19 03:17 Tylenol PO Q4H PRN Fever >101 Albuterol 2.5 mg 03/11/19 03:19 Proventil IH Q6HRT PRN Shortness Of Breath Dextrose 50 ml 03/11/19 04:53 D50w (25gm) Syringe IV PRN PRN Hypoglycemia Hydralazine HCl 20 mg 03/11/19 04:51 Apresoline IV Q4H PRN Blood Pressure Ceftriaxone Sodium 1 gm in 50 mls @ 100 mls/hr 03/11/19 10:00 03/11/19 13:11 Rocephin/Ns 1 Gm/50 Ml IV 100 mls/hr Q24HR LULI Administration Protocol Azithromycin 500 mg/ Sodium 250 mls @ 250 mls/hr 03/11/19 10:00 03/11/19 13:10 Chloride IV 250 mls/hr Q24HR LULI Administration Protocol Sodium Chloride 100 mls @ 999 mls/hr 03/11/19 05:13 Nacl 0.9% IV FITO PRN Hypotension Insulin Human Regular 0 units 03/11/19 07:30 03/11/19 16:51 Humulin R SUB-Q 2 units AC LULI Administration Protocol Insulin Human Regular 0 units 03/11/19 22:00 03/11/19 22:36 Humulin R SUB-Q Not Given QHS LULI Protocol Ondansetron HCl 4 mg 03/11/19 03:18 Zofran IV Q8H PRN Nausea And Vomiting
[2019-03-12] MEDS: ZITHROMAX 500 MG in NACL 0.9% 250ML 250 ML IV SCH (09:48)
[2019-03-12] MEDS: ROCEPHIN/NS 1 GM/50 ML 1 GM/50 ML BAG IV SCH (09:48)
[2019-03-12] MEDS ORDERED: COZAAR PO SCH (10:00)
[2019-03-12] MEDS: COREG PO SCH ×2 (10:01→22:06)
--- NOTE | 2019-03-12 10:14 | Progress Note ---
Assessment and Plan Volume overload ESRD on HD Hypertension Recommend Dialysis regimen for fluid and electrolyte management. Optimal blood pressure control. Obtain prior records from [place] for cardiac review. Subjective Date of service: 03/12/19 Interval history: Patient reports he is feeling better. He denies chest pain and shortness of breath. Objective Vital Signs Temp Pulse Pulse Resp BP Pulse Ox 03/12/19 07:17 98.6 F 91 H 20 162/97 98 03/12/19 01:42 98.7 F 91 H 14 154/84 99 03/11/19 20:48 84 18 98 03/11/19 20:47 101 H 03/11/19 20:33 100 03/11/19 19:31 98.3 F 101 H 20 157/93 95 03/11/19 17:21 103 H 25 H 154/91 99 03/11/19 17:11 106 H 24 154/91 97 03/11/19 17:00 85 18 154/91 98 03/11/19 16:51 88 19 154/87 99 03/11/19 16:40 83 19 154/87 100 03/11/19 16:31 84 16 154/87 99 03/11/19 16:21 80 15 154/87 99 03/11/19 16:20 99 03/11/19 16:15 82 14 154/87 99 03/11/19 16:00 82 82 17 154/87 98 03/11/19 15:45 93 H 17 148/92 99 03/11/19 15:31 85 18 148/92 98 03/11/19 15:15 85 15 148/92 98 03/11/19 15:00 94 H 19 148/92 03/11/19 14:45 93 H 16 151/90 99 03/11/19 14:31 93 H 16 151/90 98 03/11/19 14:15 89 22 151/90 100 03/11/19 14:00 99 H 20 151/90 98 03/11/19 13:45 98 H 21 152/90 03/11/19 13:30 101 H 26 H 157/92 99 03/11/19 13:15 90 22 161/91 98 03/11/19 13:00 107 H 19 172/96 98 03/11/19 12:45 115 H 23 156/98 90 03/11/19 12:30 102 H 19 156/98 03/11/19 12:15 103 H 22 161/97 98 03/11/19 12:00 94 H 20 153/100 99 03/11/19 11:45 96 H 20 154/99 03/11/19 11:30 97.5 F L 97 H 19 157/92 98 03/11/19 11:15 102 H 23 164/95 99 03/11/19 11:00 102 H 20 167/103 99 03/11/19 10:45 101 H 22 169/102 99 03/11/19 10:30 103 H 23 174/101 98 03/11/19 10:15 106 H 18 172/104 - Physical Examination General: No Apparent Distress HEENT: Positive: PERRL Neck: Positive: trachea midline Cardiac: Positive: Reg Rate and Rhythm Lungs: Positive: Decreased Breath Sounds Neuro: Positive: Grossly Intact Extremities: Absent: edema - Labs and Meds Cardiac Enzymes 03/11/19 Range/Units 13:47 CK-MB (CK-2) 8.2 H (0.0-4.0) ng/mL CBC 03/12/19 Range/Units 04:51 WBC 9.7 (4.5-11.0) K/mm3 RBC 2.63 L (3.65-5.03) M/mm3 Hgb 7.5 L (11.8-15.2) gm/dl Hct 22.5 L D (35.5-45.6) % Plt Count 277 (140-440) K/mm3 Comprehensive Metabolic Panel 03/12/19 Range/Units 04:51 Sodium 138 (137-145) mmol/L Potassium 5.0 (3.6-5.0) mmol/L Chloride 96.9 L (98-107) mmol/L Carbon Dioxide 23 D (22-30) mmol/L BUN 61 H (9-20) mg/dL Creatinine 10.6 H (0.8-1.5) mg/dL Glucose 102 H (75-100) mg/dL Calcium 8.2 L (8.4-10.2) mg/dL
--- NOTE | 2019-03-12 13:54 | Progress Note ---
Assessment and Plan Patient alert and awake. Resting on room air. Denies chest pain, SOB, and cough. O2 saturation 97% on room air. Afebrile, no leukocytosis. - Patient Problems (1) Respiratory distress Current Visit: Yes Status: Acute Plan to address problem: Albuterol/Atrovent q 6 hrs for shortness of breath. On Ceftriaxone and Azithromycin. O2 as needed to maintain O2 sat >92%. Dialysis as per nephrology. (2) Pneumonia involving right lung Current Visit: Yes Status: Acute Plan to address problem: Albuterol/Atrovent q 6 hrs for shortness of breath. On Ceftriaxone and Azithromycin. O2 as needed to maintain O2 sat >92%. (3) End-stage renal disease needing dialysis Current Visit: Yes Status: Acute Plan to address problem: Management as per nephrology. (4) Hypertensive urgency Current Visit: Yes Status: Acute Plan to address problem: BP remains elevated. Management as per primary care. Subjective Date of service: 03/12/19 Interval history: Patient alert and awake. Resting on room air. Denies chest pain, SOB, and cough. O2 saturation 97% on room air. Afebrile, no leukocytosis. Objective Vital Signs - 12hr 03/12/19 03/12/19 03/12/19 07:17 10:00 13:05 Temperature 98.6 F 98.0 F Pulse Rate 91 H 91 H 76 Respiratory 20 20 Rate Blood Pressure 162/97 162/87 O2 Sat by Pulse 98 97 Oximetry Constitutional: no acute distress, alert Eyes: non-icteric ENT: oropharynx moist Neck: supple, no JVD Ascultation: Bilateral: rales Cardiovascular: regular rate and rhythm Gastrointestinal: normoactive bowel sounds, soft, non-tender Integumentary: normal Extremities: no cyanosis, no edema Neurologic: normal mental status, non-focal exam, pupils equal and round, CN II-XII normal Psychiatric: mood appropriate CBC and BMP: 03/12/19 04:51 03/12/19 04:51 ABG, PT/INR, D-dimer: ABG POC ABG pH 7.462 (7.35-7.45) H 03/11/19 00:26 POC ABG pO2 171 (80-105) H 03/11/19 00:26 POC ABG HCO3 13.8 (22-26 mml/L) 03/11/19 00:26 POC ABG Total CO2 14 (23-27mmol/L) 03/11/19 00:26 POC ABG O2 Sat 100 03/11/19 00:26 Abnormal lab findings: Abnormal Labs 03/10/19 03/10/19 03/11/19 23:39 23:39 00:26 RBC 3.25 L Hgb 9.3 L Hct 28.6 L RDW 16.8 H [place] % (Auto) 9.1 H Eos % (Auto) 7.4 H [place] # 0.9 H Eos # 0.7 H POC ABG pH 7.462 H POC ABG pO2 171 H Chloride 93.8 L Carbon Dioxide 16 L BUN 88 H Creatinine 15.9 H Glucose 258 H POC Glucose Calcium 8.3 L Total Creatine Kinase CK-MB (CK-2) Troponin T 0.051 H NT-Pro-B Natriuret Pep 40350 H HDL Cholesterol 62 H Hepatitis C Antibody 03/11/19 03/11/19 03/11/19 05:50 07:43 09:59 RBC Hgb Hct RDW [place] % (Auto) Eos % (Auto) [place] # Eos # POC ABG pH POC ABG pO2 Chloride Carbon Dioxide BUN Creatinine Glucose POC Glucose 188 H Calcium Total Creatine Kinase 370 H CK-MB (CK-2) 10.8 H Troponin T 0.053 H NT-Pro-B Natriuret Pep HDL Cholesterol Hepatitis C Antibody Reactive A 03/11/19 03/11/19 03/11/19 12:04 13:47 16:49 RBC Hgb Hct RDW [place] % (Auto) Eos % (Auto) [place] # Eos # POC ABG pH POC ABG pO2 Chloride Carbon Dioxide BUN Creatinine Glucose POC Glucose 227 H 216 H Calcium Total Creatine Kinase 275 H CK-MB (CK-2) 8.2 H Troponin T 0.047 H NT-Pro-B Natriuret Pep HDL Cholesterol Hepatitis C Antibody 03/11/19 03/12/19 03/12/19 22:03 04:51 04:51 RBC 2.63 L Hgb 7.5 L Hct 22.5 L D RDW 16.9 H [place] % (Auto) Eos % (Auto) [place] # Eos # POC ABG pH POC ABG pO2 Chloride 96.9 L Carbon Dioxide BUN 61 H Creatinine 10.6 H Glucose 102 H POC Glucose 129 H Calcium 8.2 L Total Creatine Kinase CK-MB (CK-2) Troponin T NT-Pro-B Natriuret Pep HDL Cholesterol Hepatitis C Antibody
--- NOTE | 2019-03-12 15:35 | Progress Note ---
Assessment and Plan Assessment and plan: Patient is a 68 yo [place] speaking man (interrupter service used) with a history of hypertesnion and ESRD on hemodialysis at [facility] who presented to [facility] ED with SOB. Chest x-ray reports cardiomegaly with mild interstitial edema and right basilar pneumonitis. EMS says that he had a pulse ox in the low 80s on room air. He was given a breathing treatment and pulse ox went up to about 90%. Acute hypoxic respiratory failure: use o2, treat the pneumonia RLL pneumonia: treat with abx ESRD on hemodialysis: continue hemodialysis Pulmonary Edema: treat with increase Ultrafiltration during Hemodialysis. Accelerated hypertension: add iv hydralazine prn History Interval history: Patient was seen and examined. Follow-up on current diagnosis. No overnight events reported to me. Patient denies any chest pain, shortness breath, na usea/vomiting or severe headaches. Imaging, nursing note, chart, labs and old chart reviewed. Discussed with patient. Hospitalist Physical - Physical exam Narrative exam: Gen: thin, NAD, Awake, Alert, Orientated HEENT: NCAT, EOMI, PERRL, OP Clear Neck: supple, no adenopathy, no thyromegaly, no JVD CVS/Heart: RRR, normal S1S2, pulses present bilaterally Chest/Lungs: diminished bs bilaterally, Symmetrical chest expansion, good air entry bilaterally GI/Abdomen: soft, NTND, good bowel sounds, no guarding or rebound /Bladder: no suprapubic tenderness, no CVA or paraspinal tenderness Extermity/Skin: no c/c/e, no obvious rash MSK: FROM x 4 Neuro: CN 2-12 grossly intact, no new focal deficits Psych: calm - Constitutional Vitals: Temp Pulse Resp BP Pulse Ox 98.0 F 76 20 162/87 97 03/12/19 13:05 03/12/19 13:05 03/12/19 13:05 03/12/19 13:05 03/12/19 13:05 General appearance: Present: no acute distress Results - Labs CBC & Chem 7: 03/12/19 04:51 03/12/19 04:51 Labs: Laboratory Last Values WBC 9.7 K/mm3 (4.5-11.0) 03/12/19 04:51 RBC 2.63 M/mm3 (3.65-5.03) L 03/12/19 04:51 Hgb 7.5 gm/dl (11.8-15.2) L 03/12/19 04:51 Hct 22.5 % (35.5-45.6) L D 03/12/19 04:51 MCV 86 fl (84-94) 03/12/19 04:51 MCH 29 pg (28-32) 03/12/19 04:51 MCHC 33 % (32-34) 03/12/19 04:51 RDW 16.9 % (13.2-15.2) H 03/12/19 04:51 Plt Count 277 K/mm3 (140-440) 03/12/19 04:51 Lymph % (Auto) 27.1 % (13.4-35.0) 03/10/19 23:39 [place] % (Auto) 9.1 % (0.0-7.3) H 03/10/19 23:39 Eos % (Auto) 7.4 % (0.0-4.3) H 03/10/19 23:39 Baso % (Auto) 1.0 % (0.0-1.8) 03/10/19 23:39 Lymph # 2.6 K/mm3 (1.2-5.4) 03/10/19 23:39 [place] # 0.9 K/mm3 (0.0-0.8) H 03/10/19 23:39 Eos # 0.7 K/mm3 (0.0-0.4) H 03/10/19 23:39 Baso # 0.1 K/mm3 (0.0-0.1) 03/10/19 23:39 Seg Neutrophils % 55.4 % (40.0-70.0) 03/10/19 23:39 Seg Neutrophils # 5.3 K/mm3 (1.8-7.7) 03/10/19 23:39 APTT 28.0 Sec. (24.2-36.6) 03/10/19 23:39 POC ABG pH 7.462 (7.35-7.45) H 03/11/19 00:26 POC ABG pO2 171 (80-105) H 03/11/19 00:26 POC ABG HCO3 13.8 (22-26 mml/L) 03/11/19 00:26 POC ABG Total CO2 14 (23-27mmol/L) 03/11/19 00:26 POC ABG O2 Sat 100 03/11/19 00:26 POC ABG Base Excess -10 ((-2) - (+3)mmol/L) 03/11/19 00:26 60 % 03/11/19 00:26 Sodium 138 mmol/L (137-145) 03/12/19 04:51 Potassium 5.0 mmol/L (3.6-5.0) 03/12/19 04:51 Chloride 96.9 mmol/L (98-107) L 03/12/19 04:51 Carbon Dioxide 23 mmol/L (22-30) D 03/12/19 04:51 23 mmol/L 03/12/19 04:51 BUN 61 mg/dL (9-20) H 03/12/19 04:51 10.6 mg/dL (0.8-1.5) H 03/12/19 04:51 Estimated GFR 5 ml/min 03/12/19 04:51 6 % 03/12/19 04:51 Glucose 102 mg/dL (75-100) H 03/12/19 04:51 POC Glucose 82 (70-105) 03/12/19 11:17 Calcium 8.2 mg/dL (8.4-10.2) L 03/12/19 04:51 0.40 mg/dL (0.1-1.2) 03/10/19 23:39 AST 20 units/L (5-40) 03/10/19 23:39 ALT 15 units/L (7-56) 03/10/19 23:39 75 units/L (35-129) 03/10/19 23:39 275 units/L (55-170) H 03/11/19 13:47 CK-MB (CK-2) 8.2 ng/mL (0.0-4.0) H 03/11/19 13:47 CK-MB (CK-2) Rel Index 2.9 (0-4) 03/11/19 13:47 0.047 ng/mL (0.00-0.029) H 03/11/19 13:47 NT-Pro-B Natriuret Pep 50138 pg/mL (0-900) H 03/10/19 23:39 7.6 g/dL (6.3-8.2) 03/10/19 23:39 4.1 g/dL (3.9-5) 03/10/19 23:39 1.2 % 03/10/19 23:39 Triglycerides 96 mg/dL (2-149) 03/10/19 23:39 Cholesterol 176 mg/dL (50-199) 03/10/19 23:39 114 mg/dL (50-130) 03/10/19 23:39 62 mg/dL (40-59) H 03/10/19 23:39 2.83 % 03/10/19 23:39 Hepatitis A IgM Ab Non-reactive (NonReactive) 03/11/19 09:59 Hep Bs Antigen Non-reactive (Negative) 03/11/19 09:59 Hep B Core IgM Ab Non-reactive (NonReactive) 03/11/19 09:59 Reactive (NonReactive) A 03/11/19 09:59 Blood Type O POSITIVE 03/10/19 23:40 Antibody Screen Negative 03/10/19 23:40 Active Medications - Current Medications Current Medications: Generic Name Dose Route Start Last Admin Trade Name Freq PRN Reason Stop Dose Admin Acetaminophen 650 mg 03/11/19 03:17 Tylenol PO Q4H PRN Fever >101 Albuterol 2.5 mg 03/11/19 03:19 Proventil IH Q6HRT PRN Shortness Of Breath Carvedilol 3.125 mg 03/12/19 10:00 03/12/19 10:01 Coreg PO 3.125 mg BID LULI Administration Dextrose 50 ml 03/11/19 04:53 D50w (25gm) Syringe IV PRN PRN Hypoglycemia Hydralazine HCl 20 mg 03/11/19 04:51 Apresoline IV Q4H PRN Blood Pressure Ceftriaxone Sodium 1 gm in 50 mls @ 100 mls/hr 03/11/19 10:00 03/12/19 09:48 Rocephin/Ns 1 Gm/50 Ml IV 100 mls/hr Q24HR LULI Administration Protocol Azithromycin 500 mg/ Sodium 250 mls @ 250 mls/hr 03/11/19 10:00 03/12/19 09:48 Chloride IV 03/15/19 10:59 250 mls/hr Q24HR LULI Administration Protocol Sodium Chloride 100 mls @ 999 mls/hr 03/11/19 05:13 Nacl 0.9% IV FITO PRN Hypotension Insulin Human Regular 0 units 03/11/19 07:30 03/12/19 11:30 Humulin R SUB-Q Not Given AC LULI Protocol Insulin Human Regular 0 units 03/11/19 22:00 03/11/19 22:36 Humulin R SUB-Q Not Given QHS LULI Protocol Losartan Potassium 50 mg 03/12/19 10:00 03/12/19 10:01 Cozaar PO 50 mg QDAY LULI Administration Ondansetron HCl 4 mg 03/11/19 03:18 Zofran IV Q8H PRN Nausea And Vomiting
[2019-03-13 06:02] LABS: Hematocrit 23.8 % (35.5-45.6); Hemoglobin 7.8 gm/dl (11.8-15.2); Mean Corpuscular HGB Conc 33 % (32-34); Mean Corpuscular Volume 87 fl (84-94); Platelet Count 272 K/mm3 (140-440); Red Blood Count 2.73 M/mm3 (3.65-5.03)
[2019-03-13 06:22] LABS: Calcium 7.3 mg/dL (8.4-10.2)
[2019-03-13] MEDS: HumuLIN R SUB-Q SCH ×3 (08:13→17:04)
--- NOTE | 2019-03-13 08:47 | Progress Note ---
Subjective Interval history: Patient was seen today for follow-up on multiple renal related issues Events of this hospitalization were noted Has had hemodialysis yesterday Blood pressure is somewhat better Interdisciplinary notes were also reviewed Vitals intake output medications were reviewed Past medical history: Reviewed Family, social history: Reviewed Allergies: Reviewed Physical examination General: No acute distress Vitals: Reviewed HEENT: Oral mucosa moist no icterus Neck: Supple no thyromegaly nodular mass or JVD Chest: Clear to auscultation anteriorly Heart: Regular rate and rhythm S1-S2 heard no S3-S4 Abdomen: Soft nontender no suprapubic masses no organomegaly Extremity: Dry skin less than 1+ edema Psych: No evidence of any agitation and aggression noted Derm: No petechial rash Assessment and plan: End-stage renal disease: Patient will be placed on MWF dialysis schedule patient was advised not to miss any treatment, suggested to dialyze 3 times per week Accelerated hypertension requires better control and follow-up, Anemia and end-stage renal disease: We'll give erythropoietin 20,000 units subcutaneous Mild hyperkalemia: To follow, like to discontinue losartan in his case Order for anemia workup patient needs hemodialysis, Secondary hyperparathyroidism: Monitor phosphorus and PTH periodically and adjust binders as needed Diet and nutrition: Fluid restriction 1200 mL per day, high-protein diet may benefit from nutrition consultation , patient is protein intake should be 1.5 g per KG body weight Hypertension and volume continue to monitor, educated about fluid restriction sodium restriction Has been started on losartan as well as carvedilol to follow Reduce dialysis sodium to 135 Prognosis: Guarded, due to dialysis status We'll continue to follow and make recommendation from renal standpoint Objective - Vital Signs Vital signs: Vital Signs - 12hr 03/12/19 03/12/19 03/12/19 21:00 22:00 22:06 Temperature Pulse Rate 87 87 Respiratory Rate Blood Pressure 154/85 O2 Sat by Pulse 99 99 Oximetry 03/13/19 03/13/19 02:00 07:39 Temperature 98.7 F 98.4 F Pulse Rate 84 81 Respiratory 16 18 Rate Blood Pressure 154/96 167/99 O2 Sat by Pulse 95 100 Oximetry - Lab 03/13/19 05:36 03/13/19 05:36 Most recent lab results Calcium 7.3 mg/dL (8.4-10.2) L 03/13/19 05:36 Medications & Allergies - Medications Allergies/Adverse Reactions: Allergies No Known Allergies Allergy (Unverified 03/10/19 23:39) Home Medications: Home Medications Medication Instructions Recorded Confirmed Last Taken Type Unobtainable 03/11/19 03/11/19 Unknown History Active Medications: Generic Name Dose Route Start Last Admin Trade Name Freq PRN Reason Stop Dose Admin Acetaminophen 650 mg 03/11/19 03:17 Tylenol PO Q4H PRN Fever >101 Albuterol 2.5 mg 03/11/19 03:19 Proventil IH Q6HRT PRN Shortness Of Breath Carvedilol 3.125 mg 03/12/19 10:00 03/12/19 22:06 Coreg PO 3.125 mg BID LULI Administration Dextrose 50 ml 03/11/19 04:53 D50w (25gm) Syringe IV PRN PRN Hypoglycemia Epoetin Luis 20,000 unit 03/13/19 10:00 Procrit SUB-Q 03/13/19 10:01 ONCE ONE Hydralazine HCl 20 mg 03/11/19 04:51 Apresoline IV Q4H PRN Blood Pressure Ceftriaxone Sodium 1 gm in 50 mls @ 100 mls/hr 03/11/19 10:00 03/12/19 09:48 Rocephin/Ns 1 Gm/50 Ml IV 100 mls/hr Q24HR LULI Administration Protocol Azithromycin 500 mg/ Sodium 250 mls @ 250 mls/hr 03/11/19 10:00 03/12/19 09:48 Chloride IV 03/15/19 10:59 250 mls/hr Q24HR LULI Administration Protocol Sodium Chloride 100 mls @ 999 mls/hr 03/11/19 05:13 Nacl 0.9% IV FITO PRN Hypotension Sodium Chloride 100 mls @ 999 mls/hr 03/13/19 09:00 Nacl 0.9% IV FITO PRN Hypotension Insulin Human Regular 0 units 03/11/19 07:30 03/13/19 08:13 Humulin R SUB-Q Not Given AC LULI Protocol Insulin Human Regular 0 units 03/11/19 22:00 03/12/19 22:04 Humulin R SUB-Q Not Given QHS LULI Protocol Losartan Potassium 50 mg 03/12/19 10:00 03/12/19 10:01 Cozaar PO 50 mg QDAY LULI Administration Ondansetron HCl 4 mg 03/11/19 03:18 Zofran IV Q8H PRN Nausea And Vomiting
--- NOTE | 2019-03-13 08:53 | Progress Note ---
<KATIE RODRÍGUEZ - Last Filed: 03/13/19 10:00> Assessment and Plan Volume overload ESRD on HD Hypertension Echocardiogram shows a dilated cardiomyopathy, left ventricular ejection fraction 30-35%, moderate to severe mitral regurgitation with an eccentric jet. Recommend: Sodium/fluid restriction. Dialysis regimen for fluid and electrolyte management. Optimal blood pressure control. Continue medical therapy for systolic heart failure. Patient will follow up with [facility] as an outpatient for continued medical management. Subjective Date of service: 03/13/19 Interval history: Patient denies chest pain and shortness of breath. For dialysis today. Objective Vital Signs Temp Pulse Resp BP Pulse Ox 03/13/19 07:39 98.4 F 81 18 167/99 100 03/13/19 02:00 98.7 F 84 16 154/96 95 03/12/19 22:06 87 154/85 03/12/19 22:00 87 99 03/12/19 21:00 99 03/12/19 19:45 98.3 F 87 20 154/85 97 03/12/19 13:05 98.0 F 76 20 162/87 97 03/12/19 10:00 91 H - Physical Examination General: No Apparent Distress HEENT: Positive: PERRL Neck: Positive: trachea midline Cardiac: Positive: Reg Rate and Rhythm Lungs: Positive: Decreased Breath Sounds Neuro: Positive: Grossly Intact Extremities: Absent: edema - Labs and Meds CBC 03/13/19 Range/Units 05:36 WBC 7.5 (4.5-11.0) K/mm3 RBC 2.73 L (3.65-5.03) M/mm3 Hgb 7.8 L (11.8-15.2) gm/dl Hct 23.8 L (35.5-45.6) % Plt Count 272 (140-440) K/mm3 Comprehensive Metabolic Panel 03/13/19 Range/Units 05:36 Sodium 138 (137-145) mmol/L Potassium 5.6 H (3.6-5.0) mmol/L Chloride 95.9 L (98-107) mmol/L Carbon Dioxide 20 L (22-30) mmol/L BUN 84 H (9-20) mg/dL Creatinine 13.1 H (0.8-1.5) mg/dL Glucose 88 (75-100) mg/dL Calcium 7.3 L (8.4-10.2) mg/dL <JOSE LE - Last Filed: 03/13/19 16:12> Assessment and Plan I have seen and evaluated the patient and agree with the assessment and plan. Continue goal directed medical therapy for treatment of dilated cardiomyopathy. Volume removal via dialysis. Patient to follow up at [facility] when he has previously undergone invasive evaluation and management. Objective Vital Signs Temp Pulse Resp BP Pulse Ox Pulse Ox 03/13/19 14:23 62 99 03/13/19 14:15 98.3 F 57 L 18 115/60 98 03/13/19 14:00 57 L 113/59 03/13/19 13:45 54 L 122/65 03/13/19 13:30 90 148/105 03/13/19 13:29 89 154/103 03/13/19 13:15 89 154/103 03/13/19 13:00 81 168/102 03/13/19 12:45 90 154/100 03/13/19 12:30 79 160/99 03/13/19 12:15 67 160/97 03/13/19 12:00 88 167/103 03/13/19 11:45 84 174/100 03/13/19 11:30 75 157/100 03/13/19 11:15 66 164/92 03/13/19 11:12 64 168/86 03/13/19 10:45 65 179/93 03/13/19 10:30 83 171/103 03/13/19 10:07 98.5 F 85 16 172/101 98 03/13/19 10:00 47 L 18 03/13/19 07:39 98.4 F 81 18 167/99 100 03/13/19 02:00 98.7 F 84 16 154/96 95 03/12/19 22:06 87 154/85 03/12/19 22:00 87 99 03/12/19 21:00 99 03/12/19 19:45 98.3 F 87 20 154/85 97 - Labs and Meds CBC 03/13/19 Range/Units 05:36 WBC 7.5 (4.5-11.0) K/mm3 RBC 2.73 L (3.65-5.03) M/mm3 Hgb 7.8 L (11.8-15.2) gm/dl Hct 23.8 L (35.5-45.6) % Plt Count 272 (140-440) K/mm3 Comprehensive Metabolic Panel 03/13/19 Range/Units 05:36 Sodium 138 (137-145) mmol/L Potassium 5.6 H (3.6-5.0) mmol/L Chloride 95.9 L (98-107) mmol/L Carbon Dioxide 20 L (22-30) mmol/L BUN 84 H (9-20) mg/dL Creatinine 13.1 H (0.8-1.5) mg/dL Glucose 88 (75-100) mg/dL Calcium 7.3 L (8.4-10.2) mg/dL
[2019-03-13] MEDS ORDERED: NACL 0.9% 100 ML IV PRN (09:00)
[2019-03-13 09:30] LABS: % Iron Saturation 14.22 %
[2019-03-13] MEDS ORDERED: PROCRIT SUB-Q ONE (10:00)
[2019-03-13] MEDS ORDERED: PROCRIT SUB-Q NR (10:00)
[2019-03-13] MEDS: APRESOLINE PO SCH ×2 (12:09→14:51)
[2019-03-13] MEDS: COREG PO SCH (12:10)
[2019-03-13] MEDS ORDERED: NACL 0.9 (PRIMING MACHINE ONLY DIALYSIS) MC ONE (12:38)
--- NOTE | 2019-03-13 12:59 | Discharge Summary ---
Providers - Providers Date of Admission: 03/11/19 06:40 Date of discharge: 03/13/19 Attending physician: BRANDON PINK 03/11/19 00:36 Consult to Physician [CONS] Routine Comment: Consulting Provider: SHANI JURADO Physician Instructions: Reason For Exam: Dialysis 03/11/19 08:04 Consult to Physician [CONS] Routine Comment: Consulting Provider: SUNG PUCKETT Physician Instructions: Reason For Exam: COPD 03/11/19 08:05 Consult to Physician [CONS] Routine Comment: Consulting Provider: RISHABH GAMEZ Physician Instructions: Reason For Exam: CHF 03/12/19 08:45 Physical Therapy Evaluation and Treat [CONS] Routine Comment: Reason For Exam: Weakness Primary care physician: CRITICAL CARE TECHNICIAN Hospitalization Condition: Stable Hospital course: Patient is a 68 yo Fijian speaking man (interrupter service used) with a history of hypertesnion and ESRD on hemodialysis at [facility] who presented to [facility] ED with SOB. Chest x-ray reports cardiomegaly with mild interstitial edema and right basilar pneumonitis. EMS says that he had a pulse ox in the low 80s on room air. He was given a breathing treatment and pulse ox went up to about 90%. * Echocardiogram shows a dilated cardiomyopathy, left ventricular ejection fraction 30-35%, moderate to severe mitral regurgitation with an eccentric jet. Discharge Diagnoses: Acute hypoxic respiratory failure: use o2, treat the pneumonia RLL pneumonia: treat with abx day 08/09 ESRD on hemodialysis: continue hemodialysis, Fluid restriction 1200 mL per day, high-protein diet may benefit from nutrition consultation , patient is protein intake should be 1.5 g per KG body weight Pulmonary Edema: treat with increase Ultrafiltration during Hemodialysis. Accelerated hypertension: add iv hydralazine prn Hyperkalemia: treat with HD, stop Losartan Acute systolic heart failure, EF 30-35%, POA: treat with UF/HS, Sodium/fluid restriction. Anemia and end-stage renal disease: treat with erythropoietin 20,000 units subcutaneous with HD Disposition: TO HOME OR SELFCARE Time spent for discharge: 35 minutes Core Measure Documentation - Palliative Care Palliative Care/ Comfort Measures: Not Applicable - Core Measures Any of the following diagnoses?: heart failure - VTE Discharge Requirements Deep Vein Thrombosis/Pulmonary Embolism Present on Admission: No Has pt received <5 days of overlap therapy or INR<2.0: No Anticoagulant overlap therapy prescribed at discharge: No Contraindication No Overlap Therapy order at DC: Not Indicated - Heart Failure Discharge Requirements FARAZ/ARB for LVSD if EF <40%: No Reason for no FARAZ/ARB: Hyperkalemia Beta fletcher at discharge: Yes Exam - Physical Exam Narrative exam: Gen: thin, NAD, Awake, Alert, Orientated HEENT: NCAT, EOMI, PERRL, OP Clear Neck: supple, no adenopathy, no thyromegaly, no JVD CVS/Heart: RRR, normal S1S2, pulses present bilaterally Chest/Lungs: much improved and clear diminished bs bilaterally, Symmetrical chest expansion, good air entry bilaterally GI/Abdomen: soft, NTND, good bowel sounds, no guarding or rebound /Bladder: no suprapubic tenderness, no CVA or paraspinal tenderness Extermity/Skin: no c/c/e, no obvious rash MSK: FROM x 4 Neuro: CN 2-12 grossly intact, no new focal deficits Psych: calm - Constitutional Vitals: Temp Pulse Resp BP Pulse Ox 98.5 F 90 16 154/100 98 03/13/19 10:07 03/13/19 12:45 03/13/19 10:07 03/13/19 12:45 03/13/19 10:07 Plan Activity: other (no strenous activity unless cleared by Cardiology) Diet: renal Special Instructions: record daily weights Follow up with: PRIMARY CAREMD [Primary Care Provider] - 3-5 Days RISHABH GAMEZ MD [Staff Physician] - 7 Days SHANI JURADO MD [Staff Physician] - 7 Days Prescriptions: Carvedilol [Coreg] 3.125 mg PO BID #60 tablet Aspirin EC [Halfprin EC] 81 mg PO QDAY #30 tablet. levoFLOXacin [Levaquin TAB] 500 mg PO Q48H 5 Days tablet
[2019-03-13] MEDS ORDERED: LEVAQUIN PO ONE (14:09)
[2019-03-13] MEDS: ROCEPHIN/NS 1 GM/50 ML 1 GM/50 ML BAG IV SCH (14:40)
[2019-03-13 16:44] VITALS: BP 134/70
[2019-03-13] MEDS: ZITHROMAX 500 MG in NACL 0.9% 250ML 250 ML IV SCH (17:03)
== END 2019-03-13 18:10 | disposition home or self-care (01) | DRG 291 ==
LOC: ED 23:26 → CC1 03-11 06:40 → IMCU 03-11 08:44 → 2B-ACE 03-11 17:38
PROVIDERS: ADMIT Internal Medicine; ATTEND Internal Medicine
PROC: 5A09357 Assistance with Respiratory Ventilation, Less than 24 Consecutive Hours, Continuous Positive Airway Pressure (ICD-10-PCS; principal; 2019-03-11)
PROC: 5A1D70Z Performance of Urinary Filtration, Intermittent, Less than 6 Hours Per Day (ICD-10-PCS; 2019-03-11)
PROC: 4A033R1 Measurement of Arterial Saturation, Peripheral, Percutaneous Approach (ICD-10-PCS; 2019-03-11)
PROC: 5A1D70Z Performance of Urinary Filtration, Intermittent, Less than 6 Hours Per Day (ICD-10-PCS; 2019-03-13)
DX: I13.2 Hypertensive heart and chronic kidney disease with heart failure and with stage 5 chronic kidney disease, or end stage renal disease (principal); N18.6 End stage renal disease; J96.01 Acute respiratory failure with hypoxia; J18.1 Lobar pneumonia, unspecified organism; I50.21 Acute systolic (congestive) heart failure; N25.81 Secondary hyperparathyroidism of renal origin; I42.0 Dilated cardiomyopathy; F17.210 Nicotine dependence, cigarettes, uncomplicated; D63.1 Anemia in chronic kidney disease; E87.70 Fluid overload, unspecified; I16.0 Hypertensive urgency; E87.5 Hyperkalemia; Z99.2 Dependence on renal dialysis
CPT/HCPCS: 36415; 71045; 80048; 80053; 80061; 80074; 82550; 82553; 82607; 82747; 82803; 82962; 83550; 83880; 84484; 85025; 85027; 85045; 85730; 86850; 86900; 86901; 87040; 93005; 93010; 93306; 94644; 94760; 96374; 96375; G0378; J0360; J0456; J0696; J0885; J1644; J1815; J1940; J7030; J7050

== ENCOUNTER 2020-10-23 10:36 | Emergency (ER) | payer SELFPAY ==
[2020-10-23 10:43] VITALS: BP 142/72
[2020-10-23] MEDS ORDERED: OXYMETAZOLINE 0.05% NASAL SPRAY NS ONE (11:02)
--- NOTE | 2020-10-23 11:37 | Emergency Department Report ---
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 Patient has a history of hypertension, diabetes, and ESRD on dialysis. He states compliance with his dialysis. He denies any pain or trauma to the nose, congestion, headache, vision changes, or use of blood thinners. He does report working outside a great deal. He states the bleeding is mild. -: Sudden Location: face Severity scale (0 -10): 0 - Related Data Home Medications Medication Instructions Recorded Confirmed Last Taken AtorvaSTATin [Lipitor] 20 mg PO QHS 07/27/19 07/27/19 Unknown Calcium Acetate [Phoslo] 667 mg PO TID 07/27/19 07/27/19 Unknown Torsemide [Demadex] 100 mg PO DAILY 07/27/19 07/27/19 Unknown carvediloL [Coreg] 6.25 mg PO BID 07/27/19 07/27/19 Unknown lisinopriL [Zestril] 20 mg PO QDAY 07/27/19 07/27/19 Unknown Previous Rx's Medication Instructions Recorded Last Taken Type amLODIPine 10 mg PO QDAY #90 tablet 07/27/19 Unknown Rx Allergies Allergy/AdvReac Type Severity Reaction Status Date / Time No Known Allergies Allergy Unverified 03/10/19 23:39 ED Review of Systems ROS: Stated complaint: NOSE BLEED Other details as noted in HPI Constitutional: denies: chills, diaphoresis, fever, malaise, weakness Eyes: denies: eye pain, vision change ENT: denies: ear pain, throat pain, dental pain Respiratory: denies: cough, shortness of breath Cardiovascular: denies: chest pain Skin: denies: rash Neurological: denies: headache Hematological/Lymphatic: denies: easy bleeding, easy bruising, swollen glands ED Past Medical Hx - Past Medical History Previous Medical History?: Yes Hx Hypertension: Yes Hx Heart Attack/AMI: No Hx Congestive Heart Failure: No Hx Diabetes: Yes Hx Deep Vein Thrombosis: No Hx Liver Disease: No Hx Renal Disease: Yes (ESRD on dialysis) Hx Kidney Stones: No Additional medical history: Rigth chest port for dialysis - Surgical History Hx Coronary Stent: No Hx Pacemaker: No Hx Internal Defibrillator: No - Social History Smoking Status: Never Smoker Substance Use Type: None - Medications Home Medications: Home Medications Medication Instructions Recorded Confirmed Last Taken Type AtorvaSTATin [Lipitor] 20 mg PO QHS 07/27/19 07/27/19 Unknown History Calcium Acetate [Phoslo] 667 mg PO TID 07/27/19 07/27/19 Unknown History Torsemide [Demadex] 100 mg PO DAILY 07/27/19 07/27/19 Unknown History amLODIPine 10 mg PO QDAY #90 tablet 07/27/19 Unknown Rx carvediloL [Coreg] 6.25 mg PO BID 07/27/19 07/27/19 Unknown History lisinopriL [Zestril] 20 mg PO QDAY 07/27/19 07/27/19 Unknown History ED Physical Exam - General Limitations: No Limitations General appearance: alert, in no apparent distress - Head Head exam: Present: atraumatic, normocephalic - Eye Eye exam: Present: normal appearance - ENT ENT exam: Present: other (No abnormalities noted of the right nostril; left nostril demonstrates minimal bleeding that appears to be sourced from the Kiesselbach plexus; no tenderness to palpation of the nostril or nose noted; no swelling to the face noted) - Neck Neck exam: Present: normal inspection - Respiratory Respiratory exam: Absent: respiratory distress - Cardiovascular Cardiovascular Exam: Present: regular rate - Neurological Exam Neurological exam: Present: alert, oriented X3 - Psychiatric Psychiatric exam: Present: normal affect, normal mood - Skin Skin exam: Present: warm, dry, intact, normal color. 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 Patient has a history of hypertension, diabetes, and ESRD on dialysis. He states compliance with his dialysis. He denies any pain or trauma to the nose, congestion, headache, vision changes, or use of blood thinners. He does report working outside a great deal. He states the bleeding is mild. Bleeding has subsided with Afrin nasal spray. Patient given Afrin for home and informed to use up to twice a day as needed for up to 3 days for nose bleeding. Discussed signs and symptoms that should prompt immediate return to the emergency department in detail patient verbalized understanding. He is otherwise well-appearing and stable for discharge home. Critical care attestation.: If time is entered above; I have spent that time in minutes in the direct care of this critically ill patient, excluding procedure time. ED Disposition Clinical Impression: Acute anterior epistaxis Disposition: TO HOME OR SELFCARE Is pt being admited?: No Condition: Stable Instructions: Nosebleed, [id number] Referrals: PRIMARY CARE, [Primary Care Provider] - 2-3 Days Print Language: AUSTRIAN
== END 2020-10-23 13:51 | disposition home or self-care (01) ==
LOC: ED 10:36
DX: R04.0 Epistaxis (principal); I10 Essential (primary) hypertension; E11.9 Type 2 diabetes mellitus without complications; Z79.899 Other long term (current) drug therapy
CPT/HCPCS: 99281